=== PATIENT | female | born 1955 | race Caucasian/White ===

== ENCOUNTER → 2016-09-26 10:11 | Outpatient (CLI) | payer OTHER ==
[~2016-09-26 10:11] MED LIST: DILAUDID2 MG PO; TAPAZOLE 10 MG10 MG PO; ULTRAM50 MG PO; ZOFRAN ODT4 MG/UDTAB PO
[2016-12-22 14:21] VITALS: BMI 27.1
== END | disposition home or self-care (01) ==
LOC: D.US 10:11
DX: E04.2 Nontoxic multinodular goiter (principal)

== ENCOUNTER 2016-12-22 11:21 | Day surgery (SDC) | payer OTHER ==
[~2016-12-22] VITALS: Ht 167.6 cm; Wt 76.2 kg
[2016-12-22 13:43] LABS: BASOPHILS 0.3 % (0-2); EOSINOPHILS 0.4 % (0-7); HEMATOCRIT 33.6 % (36.0-48.0); IMMATURE GRANULOCYTES 0.1 % (0-5); LYMPHOCYTES 27.2 % (15-50); MCH 28.9 pg (26.0-34.0); MCHC 32.7 g/dL (31.0-37.0); MCV 88.4 fL (80.0-100.0); MEAN PLATELET VOLUME 10.6 fL (7.4-10.4); MONOCYTES 11.7 % (2-11); NEUTROPHILS 60.3 % (40-80); PLATELET COUNT 276 10x3/uL (130-400); RDW 14.4 % (11.5-14.5); WBC 6.7 10x3/uL (4.8-10.8)
[2016-12-22] MEDS ORDERED: ULTRAM50 MG PO (14:11)
[2016-12-22] MEDS ORDERED: ZOFRAN ODT4 MG/UDTAB PO (14:11)
[2016-12-22] MEDS ORDERED: TAPAZOLE 10 MG10 MG PO (14:12)
[2016-12-22 14:21] VITALS: BP 143/70; Ht 167.6 cm; Wt 76.2 kg
[2016-12-22] MEDS ORDERED: DILAUDID2 MG PO (15:58)
--- NOTE | 2016-12-25 14:38 | OP ---
PATIENT NAME: ANGELES MAI MEDICAL RECORD: [id number] :51 LOCATION:D.OPS ADMISSION DATE: SURGEON: CLIFF DAVIS MD DATE OF OPERATION: 12/22/2016 Orthopedic Surgery Operative Note PREOPERATIVE DIAGNOSIS: Intra-articular comminuted distal radius fracture. POSTOPERATIVE DIAGNOSES: Intra-articular comminuted distal radius fracture. PROCEDURE: Open reduction internal fixation of intra-articular comminuted distal radius fracture. SURGEON: Cliff Davis MD ANESTHESIA: General. INTRAOPERATIVE COMPLICATIONS: None. SUMMARY OF PATHOLOGIC FINDINGS: The comminution was exactly as seen on the preoperative radiographs; however, it reduced very nicely and was amenable to volar plating. OPERATIVE SUMMARY IN DETAIL: After obtaining the appropriate preoperative orthopedic surgery consent as well as anesthetic consultation, evaluation and clearance, the patient was brought to the operating room and placed on the operating table in supine position. After general laryngeal mask was administered, tourniquet was placed about the proximal aspect of the right upper extremity. Right upper extremity was then prepped and draped in a routine sterile fashion. The arm was elevated, exsanguinated and tourniquet was inflated to 250 mmHg. Curvilinear incision was made in keeping with Fausto's volar approach, taken down to the level of the flexor carpal radialis. Dissection was carried down to the median nerve sheath. The median nerve was identified. The carpal canal in its entirety was opened up and then soft retractors were utilized to retract the capsule of the distal radial joint. An incision was made down the plate. It was put in the appropriate position as seen on fluoroscopy. Serial and sequential drill and fill was done while holding the fracture reduced. This resulted in excellent anatomic realignment. Of note, a large bone clamp was utilized to hold the intra-articular split reduced while the plate was put into place. The clamp was then taken off. Final radiographs were submitted for radiologist review. The wound was copiously irrigated and closed with 2-0 Vicryl followed 4-0 Prolene in a running fashion. Sterile dressings were applied. Tourniquet was deflated. A volar splint was applied. The patient was awakened, taken to the recovery room in stable condition. All final needle and sponge counts were correct. TRANSINT:[id number] Voice Confirmation ID: [id number] DOCUMENT ID: [id number] OPERATIVE REPORT [id number] ANGELES MAI MD, CLIFF COLEY at 1438 CC: [id number] DICTATION DATE: 12/22/16 1601 ACID BATH MIXER: 12/23/16 0037 [facility] 12/22/16 [place] [id number] [place] [id number]
== END 2016-12-22 17:40 | disposition home or self-care (01) ==
LOC: D.OPS 11:21
PROVIDERS: Anesthesiology
DX: S52.571A Other intraarticular fracture of lower end of right radius, initial encounter for closed fracture (principal)

== ENCOUNTER → 2017-04-06 16:58 | Outpatient (CLI) | payer OTHER ==
[2016-12-22 14:21] VITALS: BMI 27.1
== END | disposition home or self-care (01) ==
LOC: D.MAMMO 03-03 10:15
DX: Z12.31 Encounter for screening mammogram for malignant neoplasm of breast (principal)

== ENCOUNTER → 2017-05-11 16:54 | Outpatient (CLI) | payer OTHER | END | disposition home or self-care (01) | LOC: D.MAMMO 16:54 | DX: R92.8 Other abnormal and inconclusive findings on diagnostic imaging of breast (principal); N63 Unspecified lump in breast ==

== ENCOUNTER → 2019-01-13 17:02 | Outpatient (CLI) | payer MEDICARE ==
[2016-12-22 14:21] VITALS: BMI 27.1
== END | disposition home or self-care (01) ==
LOC: D.MAMMO 01-10 11:45
PROVIDERS: ATTEND Family Medicine
DX: Z12.31 Encounter for screening mammogram for malignant neoplasm of breast (principal)

== ENCOUNTER 2019-10-26 05:27 | Day surgery (SDC) | payer MEDICARE, OTHER ==
[~2019-10-26] VITALS: Ht 167.6 cm; Wt 93.4 kg
[~2019-10-26 05:27] MED LIST changes: +ATIVAN0.5 MG PO; +CLARITIN 10 MG10 MG PO; +COLACE100 MG PO; +LEVOTHYROXINE100 MCG PO; +LISINOPRIL10 MG PO; +NAPROSYN500 MG PO; +SINGULAIR10 MG PO
[2019-10-26 06:04] LABS: HEMATOCRIT 37.9 % (36.0-48.0); HEMOGLOBIN 12.5 g/dL (12-16); MCH 30.9 pg (26.0-34.0); MCV 93.8 fL (80.0-100.0); MEAN PLATELET VOLUME 9.4 fL (7.4-10.4); RBC 4.04 10x6/uL (4.00-5.40); RDW 13.4 % (11.5-14.5); WBC 5.7 10x3/uL (4.8-10.8)
[2019-10-26 06:27] VITALS: BP 162/86; Ht 167.6 cm; Wt 93.4 kg
[2019-10-26] MEDS ORDERED: MEPERIDINE HCL50 MG PO (08:46)
== END 2019-10-26 18:50 | disposition home or self-care (01) ==
LOC: D.OPS 05:27 → D.PAN 08:00 → D.OPS 09:30
PROVIDERS: Anesthesiology; ATTEND Surgery
DX: K80.20 Calculus of gallbladder without cholecystitis without obstruction (principal); K80.80 Other cholelithiasis without obstruction; R52 Pain, unspecified; I10 Essential (primary) hypertension; J45.909 Unspecified asthma, uncomplicated; E04.2 Nontoxic multinodular goiter

== ENCOUNTER 2020-03-27 08:00 | Outpatient (CLI) | payer MEDICARE, OTHER ==
[2019-10-26 06:27] VITALS: BMI 33.3
[~2020-03-27 08:00] MED LIST changes: +MEPERIDINE HCL50 MG PO
== END 2020-03-27 16:12 | disposition home or self-care (01) ==
LOC: D.MAMMO 08:00
PROVIDERS: ATTEND Family Medicine
DX: Z12.31 Encounter for screening mammogram for malignant neoplasm of breast (principal)